=== PATIENT | female | born 1990 | race Caucasian/White ===

== ENCOUNTER 2023-04-01 03:55 | Emergency (ER) | payer OTHER ==
[~2023-04-01] VITALS: Ht 162.6 cm; Wt 82.0 kg
[2023-04-01 04:03] VITALS: TEMP 100.1
[2023-04-01] MEDS ORDERED: ACET-3385 PO (04:11)
[2023-04-01] MEDS ORDERED: IBUP-1492 PO (04:11)
[2023-04-01] MEDS ORDERED: DOXY-354 PO (04:11)
[2023-04-01] MEDS: ACETAMINOPHEN 500 MG TABLET PO ONE (04:20)
[2023-04-01] MEDS: IBUPROFEN 600 MG TABLET PO ONE (04:20)
[2023-04-01] MEDS: DOXYCYCLINE HYCLATE 100 MG TABLET PO ONE (04:20)
[2023-04-01 04:34] VITALS: BP 124/74; PULSE 88; RESP 18
== END 2023-04-01 04:39 | disposition home or self-care (01) ==
LOC: EMS 03:56
DX: L01.00 Impetigo, unspecified (principal)
CPT/HCPCS: 99284; Z7502; Z7610